=== PATIENT | female | born 1995 | race African-American/Black ===

== ENCOUNTER 2020-12-11 14:17 | Observation (INO) | payer MEDICAID ==
[~2020-12-11] VITALS: Ht 167.6 cm; Wt 99.8 kg
[2020-12-11] MEDS ORDERED: BICT1TAB PO (15:37)
[2020-12-11] MEDS ORDERED: PNV1TABL76 PO (15:38)
== END 2020-12-11 16:14 | disposition left against medical advice (07) ==
LOC: 8EST NSY 14:17 → 8 EST A/PP 15:31
PROVIDERS: ADMIT Obstetrics & Gynecology; ATTEND Obstetrics & Gynecology
DX: O42.912 Preterm premature rupture of membranes, unspecified as to length of time between rupture and onset of labor, second trimester (principal); O98.712 Human immunodeficiency virus [HIV] disease complicating pregnancy, second trimester; Z3A.25 25 weeks gestation of pregnancy
CPT/HCPCS: 59025; G0378; 99281

== ENCOUNTER 2021-10-15 15:44 | Emergency (ER) | payer MEDICAID ==
[~2021-10-15] VITALS: Ht 167.6 cm; Wt 104.0 kg
[~2021-10-15 15:44] MED LIST: BICT1TAB PO; PNV1TABL76 PO
[2021-10-15] MEDS ORDERED: ACETAMINOPHEN 325MG TABLET PO STA (16:13)
[2021-10-15] MEDS ORDERED: SODIUM CHLORIDE 0.9% 1,000 ML IV ONE ×2 (16:15→17:00)
[2021-10-15] MEDS ORDERED: KETOROLAC 30MG/ML VIAL IV STA (16:59)
[2021-10-15] MEDS ORDERED: ONDANSETRON HCL 4MG/2ML INJ IV STA (16:59)
[2021-10-15 17:06] LABS: BASOPHILS % 0.5 % (0.0-2.0); EOSINOPHILS % 0.2 % (0.0-5.0); HEMATOCRIT. 37.6 % (36.0-48.0); HEMOGLOBIN. 12.8 g/dL (12.0-16.0); LYMPHOCYTES % 36.6 % (20.0-50.0); MEAN CORPUSCULAR HEMOGLOBIN 34.2 pg (28.0-32.0); MEAN CORPUSCULAR VOLUME 100.6 fL (81.0-99.0); MEAN PLATELET VOLUME 7.7 fl (7.4-10.4); MONOCYTES % 9.5 % (2.0-8.0); NEUTROPHILS % 53.2 % (40.0-76.0); PLATELET 228 x1000/uL (130-400); RED BLOOD CELL COUNT 3.74 mill/uL (4.2-5.4); RED CELL DISTRIBUTION WIDTH 12.4 % (11.6-14.6)
[2021-10-15 17:14] LABS: CHLORIDE 98 mEq/L (98-107)
[2021-10-15 18:22] VITALS: BP 101/48
[2021-10-15 18:30] LABS: CLARITY URINE CLEAR (CLEAR); COLOR URINE YELLOW (YELLOW); KETONES URINE NEGATIVE (NEGATIVE); LEUKOCYTE ESTERASE URINE 2+ (NEGATIVE); NITRITE URINE NEGATIVE (NEGATIVE); OCCULT BLOOD URINE NEGATIVE (NEGATIVE); PH URINE 6.5 (4.5-8.0); PROTEIN URINE NEGATIVE (NEGATIVE); SPECIFIC GRAVITY URINE 1.011 (1.005-1.030); UROBILINOGEN URINE 0.2 E.U./dL (0.2-1.0)
[2021-10-15] MEDS ORDERED: CEFTRIAXONE 1 G PREMIX 50 ML IV ONE (18:45)
[2021-10-15] MEDS ORDERED: CEPH500T MT (19:30)
== END 2021-10-15 20:20 | disposition home or self-care (01) ==
LOC: ER 15:44 → CANBEDREQ 20:22
DX: N30.90 Cystitis, unspecified without hematuria (principal); I49.9 Cardiac arrhythmia, unspecified; Z20.822 Contact with and (suspected) exposure to COVID-19
CPT/HCPCS: 36415; 71045; 80053; 81003; 85025; 87040; 87086; 87426; 87804; 93005; 96361; 96365; 96375; 99285; C9803; J0696; J1885; J2405; J7030

== ENCOUNTER 2022-08-30 03:09 | Emergency (ER) | payer MEDICAID ==
[~2022-08-30] VITALS: Ht 172.7 cm; Wt 96.0 kg
[~2022-08-30 03:09] MED LIST changes: +CEPH500T MT
[2022-08-30] MEDS ORDERED: BACITRACIN ZINC OINT UDPKT TOP ONE (04:45)
[2022-08-30] MEDS ORDERED: NAPR-681 PO (06:10)
[2022-08-30] MEDS ORDERED: CYCL5TAB PO (06:10)
[2022-08-30] MEDS ORDERED: BO1 TP (06:14)
[2022-08-30 06:21] VITALS: BP 132/62
== END 2022-08-30 06:26 | disposition home or self-care (01) ==
LOC: ER 03:09
DX: S70.12XA Contusion of left thigh, initial encounter (principal); S50.812A Abrasion of left forearm, initial encounter; R07.89 Other chest pain; V49.9XXA Car occupant (driver) (passenger) injured in unspecified traffic accident, initial encounter; Y93.89 Activity, other specified; Y92.89 Other specified places as the place of occurrence of the external cause; Y99.8 Other external cause status
CPT/HCPCS: 71045; 73502; 99284

== ENCOUNTER 2023-11-29 18:15 | Emergency (ER) | payer MEDICAID ==
[~2023-11-29] VITALS: Ht 170.2 cm; Wt 125.0 kg
[~2023-11-29 18:15] MED LIST changes: +BO1 TP; +CYCL5TAB PO; +NAPR-681 PO
[2023-11-29 18:28] VITALS: TEMP 98.4; O2SAT 97
[2023-11-29] MEDS: LIDOCAINE HCL/PF 1% 10 MG/ML 5ML VIAL INFIL ONE (19:39)
[2023-11-29] MEDS: BACITRACIN ZINC OINT UDPKT TOP ONE (19:39)
[2023-11-29] MEDS: HYDROCODONE/ACETAMINOPHEN 5/325MG TABLET PO STA (19:39)
[2023-11-29] MEDS ORDERED: CEPH500T MT (20:37)
[2023-11-29] MEDS ORDERED: HYDR-4001 MT (20:37)
[2023-11-29 21:17] VITALS: BP 120/60; PULSE 80; RESP 15
== END 2023-11-29 21:17 | disposition home or self-care (01) ==
LOC: ER 18:15
DX: S91.332A Puncture wound without foreign body, left foot, initial encounter (principal); W34.09XA Accidental discharge from other specified firearms, initial encounter; Y93.89 Activity, other specified; Y92.89 Other specified places as the place of occurrence of the external cause; Y99.8 Other external cause status
CPT/HCPCS: 73610; 73630; 99284; J3490; Z7610